=== PATIENT | male | born 1990 | race Caucasian/White ===

== ENCOUNTER → 2019-11-10 11:08 | Outpatient (CLI) | payer MEDICAID, SELFPAY ==
[2019-11-10 11:58] LABS: Absolute Lymphocyte Count 1.27 X10^3/uL (0.83-4.51); Absolute Neutrophil Count 2.6 X10^3/uL (2.0-7.7); Basophil# 0.06 X10^3/uL; Basophil% 1.3 % (0-1); Eosinophil# 0.18 X10^3/uL; Eosinophils% 3.9 % (0-5); Hematocrit 43.6 % (40-54); Hemoglobin 14.6 g/dL (13.0-16.5); Lymphocyte # 1.27 X10^3/ul (4.0); Lymphocyte % 27.5 % (19-41); Mean Corp Hgb Conc 33.5 g/dL (32-36); Mean Corpuscular Hgb 30.4 pg (27.0-32.0); Mean Corpuscular Volume 90.8 fL (80-94); Mean Platelet Vol. 9.4 fl (6.2-12.0); Monocyte# 0.43 X10^3/uL; Monocyte% 9.3 % (0-10); NRBC Flagged by Analyzer 0 % (0-5); Neutrophil # 2.62 X10^3/uL (2.7-7.7); Neutrophil % 56.9 % (47-70); Platelet Count 331 K/mm3 (150-450); RBC Distribution Width CV 12.7 % (11.6-14.6); RBC Distribution Width SD 42.2 fl (35.1-43.9); White Blood Count 4.6 K/mm3 (4.4-11.0)
[2019-11-10 12:00] LABS: CRP < 2.90 mg/L (0.0-3.0)
[2019-11-10 20:13] LABS: Erythrocyte Sedimentation Rate < 1 mm/hr (0-15)
== END ==
PROVIDERS: PCP Preventive Medicine Occupational Medicine; Referring Provider Registered Nurse; Visit Provider Registered Nurse
DX: R22.9 Localized swelling, mass and lump, unspecified (principal)
CPT/HCPCS: 36415; 85025; 85652; 86140

== ENCOUNTER 2021-02-25 19:00 | Emergency (ER) | payer MEDICAID, SELFPAY ==
[2021-02-25 19:02] VITALS: BP 134/95; PULSE 81; RESP 16; TEMP 36.3; O2SAT 98; BMI 27.6
--- NOTE | 2021-02-25 19:20 | RAD_ITS ---
STUDY: X-RAY - LEFT HAND REASON FOR EXAM: Male, 30 years old. INJURY TECHNIQUE: 3 view(s) of the hand. COMPARISON: None. FINDINGS: Normal radiocarpal articulation. Normal distal radioulnar joint. Normal visualized carpal bones. Normal carpal articulations Normal carpometacarpal articulation of the thumb. Normal second through fifth carpometacarpal joints. Normal metacarpi. Normal metacarpophalangeal joint of the thumb. Normal interphalangeal joint of the thumb. Normal proximal and distal phalanges of the thumb. Normal metacarpophalangeal joints of the second through fifth fingers. Normal proximal and distal interphalangeal joints of the second through fifth fingers. Normal phalanges of the second through fifth fingers. The soft tissue structures are unremarkable. RAD/Hand Min 3 Views IMPRESSION: Normal x-ray examination of the hand. Electronically Signed: Teto Escalona MD at 20:12 EDT , Service support ,
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
--- NOTE | 2021-02-25 21:24 | ED.RN ---
pt left prior to treatment
== END 2021-02-25 21:26 | disposition home or self-care (01) ==
LOC: ED 21:14
PROVIDERS: Emergency Provider Emergency Medicine; PCP Preventive Medicine Occupational Medicine
DX: S60.022A Contusion of left index finger without damage to nail, initial encounter (principal); W22.8XXA Striking against or struck by other objects, initial encounter; Y93.9 Activity, unspecified; Y92.9 Unspecified place or not applicable; Y99.9 Unspecified external cause status; F90.9 Attention-deficit hyperactivity disorder, unspecified type; F41.9 Anxiety disorder, unspecified; Z79.899 Other long term (current) drug therapy
CPT/HCPCS: 73130; 99282

== ENCOUNTER 2023-12-29 04:04 | Emergency (ER) | payer MEDICAID, SELFPAY ==
[2023-12-29] VITALS (7 sets, daily range): BP systolic 68–162; BP diastolic 36–105; PULSE 59–109; RESP 12–17; TEMP 36.2–37.1; O2SAT 98–99; BMI 26.7
--- NOTE | 2023-12-29 04:17 | CT_ITS ---
INDICATION: trauma EXAMINATION: CT NECK WITH CONTRAST - CT Soft Tissue Neck W/ Contrast Injection TECHNIQUE: Helically acquired images were obtained of the neck with sagittal and coronal reconstructed images. Individualized dose optimization techniques were used for this CT. IV contrast dosage and agent: Dose and agent. COMPARISON: None. FINDINGS: NASOPHARYNX: Unremarkable. SUPRAHYOID NECK: Unremarkable oropharynx, oral cavity, parapharyngeal space, and retropharyngeal space. INFRAHYOID NECK: Unremarkable larynx, hypopharynx, and supraglottis. THYROID: Unremarkable. SALIVARY GLANDS: Unremarkable. LYMPH NODES: No evidence of adenopathy. VASCULAR STRUCTURES: Unremarkable. VISUALIZED PORTIONS OF THE ORBITS, PARANASAL SINUSES, MASTOID AIR CELLS AND SKULL BASE: Unremarkable. BONES: No fracture or subluxation of the cervical spine. Nondisplaced nasal bone fractures. SOFT TISSUES: Unremarkable. THORACIC INLET: Visualized lung apices are unremarkable. CT/Soft Tissue Neck WITH Contrast IMPRESSION: No evidence of acute traumatic injury of the neck. Electronically Signed: Alex Bearden DO at 5:52 EDT ,
--- NOTE | 2023-12-29 04:17 | CT_ITS ---
INDICATION: trauma EXAMINATION: CT Maxillofacial W/O Contrast Injection TECHNIQUE: Helically acquired images were obtained of the face with sagittal and coronal reconstructed images. Individualized dose optimization techniques were used for this CT. IV Contrast dosage and agent: None. COMPARISON: None. FINDINGS: SOFT TISSUES: No focal soft tissue swelling. VISUALIZED PARANASAL SINUSES: Unremarkable. VISUALIZED MASTOID AIR CELLS: Clear. FACIAL BONES, MANDIBLE AND TMJs: Nondisplaced nasal bone fracture. No adjacent soft tissue swelling. ORBITAL CONTENTS: The globes, extraocular muscles and retrobulbar fat are unremarkable. CT/Sinus/Facial Bone IMPRESSION: Nondisplaced nasal bone fracture of unknown age. No other facial bone fracture. Electronically Signed: Alex Bearden DO at 5:44 EDT ,
--- NOTE | 2023-12-29 04:17 | CT_ITS ---
INDICATION: trauma EXAMINATION: CT BRAIN - CT Head or Brain W/O Contrast Injection TECHNIQUE: Multiple axial images were obtained of the head with sagittal and coronal reconstructed images. Individualized dose optimization techniques were used for this CT. IV contrast dosage and agent: None. COMPARISON: None. FINDINGS: BRAIN PARENCHYMA: No evidence of an acute infarct or intracranial hemorrhage. No evidence of a mass. CSF SPACES: The ventricles, sulci and subarachnoid cisterns are appropriate for age. CALVARIUM, SKULL BASE, PARANASAL SINUSES AND MASTOID AIR CELLS: Nondisplaced nasal bone fracture. Mastoid air cells are clear. Visualized paranasal sinuses are unremarkable. ORBITS: The globes, extraocular muscles, optic nerves and retrobulbar fat are unremarkable. CT/Brain/Head without Contrast IMPRESSION: Nondisplaced nasal bone fracture. No other fracture and no intracranial abnormality. Electronically Signed: Alex Bearden DO at 5:47 EDT ,
--- NOTE | 2023-12-29 04:18 | RAD_ITS ---
INDICATION: trauma EXAMINATION/TECHNIQUE: X-RAY - RIGHT XR Hand Min 3 Views COMPARISON: None. FINDINGS: SOFT TISSUES: Unremarkable. BONES/JOINTS: No fracture or dislocation. No significant degenerative changes. No erosive changes. RAD/Hand Min 3 Views IMPRESSION: No fracture or dislocation. Electronically Signed: Alex Bearden DO at 5:39 EDT ,
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
[2023-12-29] MEDS: 0.9% Normal Saline (500mL Bag) 500 ML 999 ML IV (05:11)
[2023-12-29] MEDS: Morphine 4 MG/ML Syringe IV (05:11)
[2023-12-29] MEDS: Ondansetron 4 MG/2 ML Vial IV (05:11)
[2023-12-29 06:35] LABS: Bedside Glucose 87 mg/dL (74-106)
== END 2023-12-29 06:22 | disposition home or self-care (01) ==
PROVIDERS: Emergency Provider Emergency Medicine; PCP Preventive Medicine Occupational Medicine; Visit Provider Emergency Medicine
DX: S02.2XXA Fracture of nasal bones, initial encounter for closed fracture (principal); S06.0X0A Concussion without loss of consciousness, initial encounter; S60.221A Contusion of right hand, initial encounter; Y04.8XXA Assault by other bodily force, initial encounter; R55 Syncope and collapse
CPT/HCPCS: 70450; 70486; 70491; 73130; 82962; 96361; 96374; 96375; 99285; Q9967; A4216; J2405

== ENCOUNTER → 2024-02-09 18:29 | Outpatient (REF) | payer SELFPAY ==
[2024-02-09 18:29] VITALS: TEMP 36.3; BMI 29.0
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
[2024-02-09] MEDS: Haloperidol Lactate 5 MG/ML Vial 10 MG IM (18:55)
[2024-02-09] MEDS: LORazepam 2 MG/ML Syringe IM (18:55)
[2024-02-09] MEDS: Haloperidol Lactate 5 MG/ML Vial IM (19:44)
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
[2024-02-09 20:43] LABS: Absolute Lymphocyte Count 1.37 X10^3/uL (0.83-4.51); Absolute Neutrophil Count 7.9 X10^3/uL (2.0-7.7); Basophil# 0.06 X10^3/uL; Basophil% 0.6 % (0-1); Eosinophil# 0.02 X10^3/uL; Eosinophils% 0.2 % (0-5); Hematocrit 47.5 % (40-54); Hemoglobin 16.3 g/dL (13.0-16.5); Lymphocyte # 1.37 X10^3/ul (0.83-4.51); Lymphocyte % 13.7 % (19-41); Mean Corp Hgb Conc 34.3 g/dL (32-36); Mean Corpuscular Hgb 30.7 pg (27.0-32.0); Mean Corpuscular Volume 89.5 fL (80-94); Mean Platelet Vol. 9.7 fl (6.2-12.0); Monocyte# 0.63 X10^3/uL; Monocyte% 6.3 % (0-10); NRBC Flagged by Analyzer 0 % (0-5); Neutrophil # 7.92 X10^3/uL (2.7-7.7); Neutrophil % 78.9 % (47-70); Platelet Count 331 K/mm3 (150-450); RBC Distribution Width CV 12.6 % (11.6-14.6); RBC Distribution Width SD 41.4 fl (35.1-43.9); Red Blood Count 5.31 M/mm3 (4.6-6.2)
[2024-02-09 20:52] VITALS: BP 119/68; PULSE 70; RESP 18; O2SAT 100
[2024-02-09 20:57] LABS: Anion Gap 11 (5-15); BUN 10 mg/dL (7-18); BUN/Creat Ratio 6.3 RATIO (10-20); Calcium,Total 9.9 mg/dL (8.5-10.1); Chloride 108 mmol/L (98-107); Creatinine, Serum 1.59 mg/dL (0.70-1.30); EST Glomerular Filtration Rate 54 mL/min (>60); Est Glom Filt Rate - Afr Amer 65 mL/min (>60); Estimated Creatinine Clearance 69.08 ml/min; Glucose 99 mg/dL (74-106); Potassium 3.8 mmol/L (3.5-5.1); Sodium Level 141 mmol/L (136-145)
[2024-02-09 21:28] LABS: Amphetamine Urine POSITIVE (<1000 ng/mL); Barbiturate Urine NEGATIVE (< 200 ng/mL); Benzodiazepine Urine POSITIVE (< 200 ng/mL); Cocaine Urine NEGATIVE (< 300 ng/mL); Ecstacy Urine NEGATIVE (< 500 ng/mL); Methadone Urine NEGATIVE (< 300 ng/mL); Opiates Urine NEGATIVE (< 300 ng/mL); PCP Urine NEGATIVE (< 25 ng/mL); THC Urine POSITIVE (< 50 ng/mL); Vista UDS pH Range 5
--- NOTE | 2024-02-09 21:32 | ED.RN ---
This nuse and CRUTCHING CONTRACTOR into collect urine sample from pt. Pt yelling and screaming. Explained that blood and urine needed collected to send to clear. Pt stating I just pulled that fuckin SI card so I wouldnt have to go to correction! This nurse explained that staff is here to help pt. Pt urinated in urinal without difficulty.
== END | disposition home or self-care (01) ==
LOC: ED 18:29
PROVIDERS: PCP Preventive Medicine Occupational Medicine; Visit Provider Emergency Medicine
DX: F32.0 Major depressive disorder, single episode, mild (principal); R45.851 Suicidal ideations; F10.920 Alcohol use, unspecified with intoxication, uncomplicated; Z65.3 Problems related to other legal circumstances
CPT/HCPCS: 80048; 80307; 82077; 85025

== ENCOUNTER 2024-02-18 23:22 | Inpatient (IN) | payer MEDICAID, SELFPAY ==
[2024-02-18 23:23] VITALS: BP 138/113; PULSE 120; RESP 18; TEMP 36.8; O2SAT 99; BMI 26.3
[2024-02-19] VITALS (8 sets, daily range): BP systolic 103–128; BP diastolic 57–93; PULSE 66–89; RESP 16–18; TEMP 35.8–37.1; O2SAT 97–100; BMI 25.0
--- NOTE | 2024-02-19 00:10 | EX.ED.SAOD ---
HPI History of Present Illness Chief Complaint: Substance Abuse Informant: patient Narrative Narrative: 33-year-old male presenting requesting admission for detox. He states mainly alcohol is the issue. It has been daily for several years averages about 24 cans of beer or equivalent per 24-hour period. He has been trying to curb in the last 2 weeks, today he only had 1 or 2 cans several hours ago to alonso off the shakes, but he feels like he is in withdrawal. He denies any suicidality. States he has a 4-year-old that he needs to straighten up his life 4. He states in the last 2 to 3 weeks he has been dabbling with snorting methamphetamine and fentanyl, partially because he accidentally lost his Adderall on the toilet, he did a Suboxone as someone gave him yesterday but it did not help him with a lot of his symptoms majorly. At this time he feels anxious, shaky, nauseated, he has been vomiting a little bit of stomach juice but no blood. Denies any melena or diarrhea. No confusion or seizures. [facility] Medical History Substance abuse Alcohol abuse GERD (gastroesophageal reflux disease) Smoker Anxiety ADHD Bicuspid cardiac valve Home Medications ?Medication ?Instructions ?Recorded ?Last Taken ?Type dextroamphetamine-amphetamine 15 1 tab PO BID 12/29/23 Unknown History mg tablet diazepam 2 mg tablet 2 mg PO Q6H PRN PRN anxiety 12/29/23 Unknown History Allergy/AdvReac Type Severity Reaction Status Date / Time acetaminophen (From Vicodin) Allergy Anaphylaxis Verified 02/18/24 23:23 carbamazepine (From Tegretol) Allergy Other Verified 02/18/24 23:23 divalproex sodium (From Allergy Other Verified 02/18/24 23:23 Depakote) hydrocodone (From Vicodin) Allergy Anaphylaxis Verified 02/18/24 23:23 Social History Smoking Status: Never smoker ROS ROS ED Constitutional Constitutional ED: Reports fatigue and malaise; Denies chills or fever(s) Eyes Eyes: Denies change in vision or diplopia ENT ENT ED: Denies rhinorrhea or sore throat Cardiovascular Cardiovascular: Denies chest pain or palpitations Respiratory/Chest Respiratory/Chest: Denies cough or dyspnea Gastrointestinal Gastrointestinal: Reports nausea and vomiting; Denies abdominal pain or diarrhea Genitourinary Genitourinary ED: Denies dysuria or hematuria Musculoskeletal Musculoskeletal: Denies back pain or neck pain Integumentary Denies abscess or rash Neurologic Neurologic: Denies headache(s), paresthesias or weakness Psychiatric Psychiatric: Reports anxiety; Denies suicidal thoughts EXAM Physical Exam Const Vital Signs: 02/18/24 23:23 Temperature 98.3 F Temperature Source Temporal Pulse Rate 120 H Respiratory Rate 18 Blood Pressure 138/113 H Blood Pressure Mean 121 Pulse Ox 99 Oxygen Delivery Method Room Air Positive well nourished and well developed General Appearance ED: well developed and NAD HEENT Reports moist mucous membranes normocephalic and atraumatic Eyes PERRL and EOMs intact bilaterally Neck full ROM and supple Resp normal respiratory effort and clear to auscultation bilaterally Cardio regular rate, regular rhythm and no murmurs GI non-tender and non-distended Auscultation: normoactive bowel sounds Palpation: soft Back/Spine no CVA tenderness General Back: other FROM Extremity normal to inspection General Extremety ED: Negative for edema, pulses abnormal or tenderness General Extremity: Negative for edema or pulses abnormal Neuro oriented x3, CN's II-XII intact bilaterally and no sensory deficits noted Sensorium / Orientation: awake and alert Motor Exam: strength 5/5 throughout Skin no rashes or lesions noted and no wounds MDM MDM MDM Narrative Medical decision making narrative: Patient was given IV fluids, Ativan, Zofran which helped his symptoms some. Workup in progress, his INR is within normal limits, cbc looks good, and EtOH only 66, consistent w/ his withdrawal sx. Discussed with hospitalist for admission. Lab Data Attestation: I reviewed the patient's lab results. Labs: Laboratory Results - last 24 hr 02/18/24 23:55 WBC 8.0 RBC 4.70 Hgb 14.3 Hct 40.3 MCV 85.7 MCH 30.4 MCHC 35.5 RDW Std Deviation 38.0 RDW Coeff of Magy 12.1 Plt Count 405 MPV 9.8 Immature Gran % (Auto) 1.500 H Neut % (Auto) 49.3 Lymph % (Auto) 34.8 Phillips % (Auto) 11.3 H Eos % (Auto) 1.8 Baso % (Auto) 1.3 H Absolute Neuts (auto) 4.0 Absolute Lymphs (auto) 2.78 Nucleated RBC % 0 PT 15.1 H INR 1.2 Sodium 139 Potassium 3.2 L Chloride 104 Carbon Dioxide 23.0 Anion Gap 12 BUN 7 Creatinine 1.24 Estim Creat Clear Calc 79.96 Est GFR (MDRD) Af Amer 87 Est GFR (MDRD) Non-Af 72 BUN/Creatinine Ratio 5.6 L Glucose 111 H Calcium 8.9 Total Bilirubin 2.10 H AST 29 ALT 43 Alkaline Phosphatase 91 Total Protein 7.7 Albumin 4.3 Globulin 3.4 Albumin/Globulin Ratio 1.3 Ethyl Alcohol 66.0 Management Discussion w/another healthcare provider: Hospitalist Discharge Plan Dx/Rx/DC Orders Clinical Impression: Alcohol withdrawal, Alcohol dependence, Polysubstance abuse Disposition Disposition: Acute Care Hospital [facility]
[2024-02-19] MEDS: Ondansetron 4 MG/2 ML Vial IV (00:18)
[2024-02-19] MEDS: LORazepam 2 MG/ML Syringe 1 MG IV (00:18)
[2024-02-19] MEDS: 0.9% Normal Saline (500mL Bag) 500 ML 999 ML IV (00:25)
[2024-02-19 00:41] LABS: International Normalized Ratio 1.2; Prothrombin Time (Protime)PT. 15.1 SECONDS (11.7-14.9)
[2024-02-19 00:50] LABS: Absolute Lymphocyte Count 2.78 X10^3/uL (0.83-4.51); Basophil% 1.3 % (0-1); Eosinophil# 0.14 X10^3/uL; Eosinophils% 1.8 % (0-5); Hematocrit 40.3 % (40-54); Hemoglobin 14.3 g/dL (13.0-16.5); Lymphocyte # 2.78 X10^3/ul (0.83-4.51); Lymphocyte % 34.8 % (19-41); Mean Corp Hgb Conc 35.5 g/dL (32-36); Mean Corpuscular Hgb 30.4 pg (27.0-32.0); Mean Corpuscular Volume 85.7 fL (80-94); Mean Platelet Vol. 9.8 fl (6.2-12.0); Monocyte% 11.3 % (0-10); NRBC Flagged by Analyzer 0 % (0-5); Neutrophil # 3.96 X10^3/uL (2.7-7.7); Neutrophil % 49.3 % (47-70); Platelet Count 405 K/mm3 (150-450); RBC Distribution Width CV 12.1 % (11.6-14.6)
--- NOTE | 2024-02-19 00:51 | HP.PCM.HOS_ITS ---
HPI - General General Date of Admission: 02/19/24 Date of Service: 02/19/24 Chief Complaint: Alcohol detox HPI Narrative ADRIANNA VALENCIA, is a 33 M who presented to [facility] ED on 02/19/2024 for alcohol detoxification. Saw patient at bedside in the ED. Patient was sitting up comfortably in bed, no acute distress. Per ED physician, patient did have signs of alcohol withdrawal on arrival to the ED so he was given doses of IV Ativan and IV Zofran with improvement in symptoms along with some sedation. When I saw the patient, he was answering my questions with short appropriate sponsors but did appear somewhat somnolent. He currently denied any acute withdrawal symptoms. Further information was obtained per ED physician. Patient has been a daily drinker for the past several years. Typically drinks about 24 cans of beer per day. He has been trying to cut back significantly over the past few weeks with only 1 to 2 cans of beer per day but has had significant withdrawal symptoms with this. States that he has a 4-year-old child and wants to straighten up his life for his child. He has been dabbling with snorting methamphetamine and fentanyl in the last 2 to 3 weeks, mainly because he lost all of his Adderall. He apparently was given a dose of Suboxone by a friend yesterday but this did not seem to help his withdrawal symptoms much. His primary symptoms on arrival to the ED were feeling anxious, shaky, nauseated and with some recent episodes of vomiting. Otherwise denied any other acute concerns. Vitals in ED notable for sinus tachycardia to around 120 and mild hypertension that improved with IV Ativan, otherwise unremarkable. Labs notable for mild hypokalemia, mildly elevated total bilirubin, otherwise unremarkable. Alcohol level was 66. No imaging was obtained. Will be admitted for further management. [facility] Medical History (Updated 02/19/24 @ 03:[address] Julien Jasso, DO) Substance abuse Alcohol abuse GERD (gastroesophageal reflux disease) Smoker Anxiety ADHD Bicuspid cardiac valve Home Medications ?Medication ?Instructions ?Recorded ?Last Taken ?Type dextroamphetamine-amphetamine 15 1 tab PO BID 12/29/23 Unknown History mg tablet diazepam 2 mg tablet 2 mg PO Q6H PRN PRN anxiety 12/29/23 Unknown History Allergy/AdvReac Type Severity Reaction Status Date / Time acetaminophen (From Vicodin) Allergy Anaphylaxis Verified 02/18/24 23:23 carbamazepine (From Tegretol) Allergy Other Verified 02/18/24 23:23 divalproex sodium (From Allergy Other Verified 02/18/24 23:23 Depakote) hydrocodone (From Vicodin) Allergy Anaphylaxis Verified 02/18/24 23:23 Social History Smoking Status: Current every day smoker tobacco type: e-cigarettes ROS Constitutional Constitutional: Denies chills, fatigue, fever(s) or weakness Eyes Eyes: Denies change in vision Cardiovascular Cardiovascular: Denies chest pain Respiratory/Chest Respiratory/Chest: Denies shortness of breath at rest Gastrointestinal Gastrointestinal: Reports nausea and vomiting; Denies abdominal pain, constipation or diarrhea Musculoskeletal Musculoskeletal: Reports myalgias; Denies arthralgias Neurologic Neurologic: Denies dizziness, focal weakness or headache(s) Psychiatric Psychiatric: Reports anxiety Vital Signs Vital Signs Vital Signs: 02/18/24 23:23 Temperature 98.3 F Temperature Source Temporal Pulse Rate 120 H Respiratory Rate 18 Blood Pressure 138/113 H Blood Pressure Mean 121 Pulse Ox 99 Oxygen Delivery Method Room Air Weight Weight: 76.158 kg Body Mass Index (BMI) 26.3 Physical Exam Const alert, oriented x3 and no apparent distress Constitutional Narrative: Younger male, somewhat somnolent appearing, otherwise sitting up comfortably in bed, answering questions with short appropriate responses, in no acute distress. General Appearance: cooperative and comfortable HEENT normocephalic, head/scalp atraumatic, hearing grossly normal bilaterally, nasal mucous membranes and turbinates normal and moist oral mucous membranes Eyes PERRL, EOMs intact bilaterally and conjunctivae normal Neck full ROM Chest inspection of chest normal Resp normal respiratory effort, normal air movement, no use of accessory muscles and clear to auscultation bilaterally Cardio regular rate, regular rhythm, no murmurs and peripheral pulses 2+ throughout GI normal to inspection, nondistended, normoactive bowel sounds, soft to palpation, non-tender and non-distended Back/Spine normal ROM Extremity normal to inspection, full ROM and no pedal edema Skin no rashes or lesions noted Neuro moves all extremities and no focal motor deficits Speech: speech normal Psych mental status grossly normal Results Lab / Micro Data 02/18/24 23:55 02/18/24 23:55 Labs: Laboratory Results - last 24 hr 02/18/24 23:55: PT 15.1 H, INR 1.2 Assessment & Plan Assessment/Plan (1) Alcohol abuse: (2) Polysubstance abuse: (3) Opiate abuse, episodic: (4) Desire for detoxification: (5) Hypokalemia: PLAN: Plan Patient is a 33-year-old male who presented [facility] ED on 02/19/2024 for alcohol and opiate detoxification. 1. Alcohol abuse with desire for detoxification ? Admit under inpatient status to [facility]. Case management consulted. Will treat with phenobarbital taper and other as needed medications per alcohol withdrawal order set. 2. Opiate abuse with desire for detoxification, polysubstance abuse ? Patient reported dabbling with snorting methamphetamine and fentanyl recently but does not report consistent long-term use. Patient notably was brought to the ED by police escort under arrest on 02/08 for domestic violence and was very agitated at that time. UDS 02/08 positive for amphetamines, benzodiazepines and cannabinoids. CINA scoring and as needed medications ordered per opiate withdrawal order set but will hold on treating with Subutex taper for now. 3. Mild hypokalemia ? Potassium 3.2 on admit. Magnesium ordered. Replete as needed. 4. Elevated total bilirubin level ? Total bilirubin level 2.1 on admit, LFTs otherwise unremarkable. Follow-up a.m. bilirubin. Presume due to alcohol use, no further workup needed at this time. 5. Anxiety/depression/history of SI/ADHD ? Will hold home Adderall and diazepam for now, treating with medications for withdrawal as noted above. DVT prophylaxis: Lovenox CODE STATUS: Full code, verified Expected disposition: Home, 2 to 3 days Total clinical time spent by myself addressing the patient's medical issues, reviewing all the data, and collaborating with patient's care team: 55 minutes. Charges/Coding Visit Charges Inpatient E&M: 06170 Init Hosp L2
[2024-02-19 01:02] LABS: ALB/GLOB Ratio 1.3 RATIO (0.9-2.4); AST(SGOT) 29 U/L (15-37); Alanine Aminotransfer ALT/SGPT 43 U/L (16-61); Albumin, Serum 4.3 g/dL (3.2-5.0); Alkaline Phosphatase 91 U/L (45-117); Anion Gap 12 (5-15); BUN 7 mg/dL (7-18); BUN/Creat Ratio 5.6 RATIO (10-20); Calcium,Total 8.9 mg/dL (8.5-10.1); Chloride 104 mmol/L (98-107); Creatinine, Serum 1.24 mg/dL (0.70-1.30); EST Glomerular Filtration Rate 72 mL/min (>60); Est Glom Filt Rate - Afr Amer 87 mL/min (>60); Estimated Creatinine Clearance 79.96 ml/min; Globulin 3.4 g/dL (2.2-4.2); Glucose 111 mg/dL (74-106); Potassium 3.2 mmol/L (3.5-5.1); Protein, Total 7.7 g/dL (6.4-8.2); Sodium Level 139 mmol/L (136-145)
[2024-02-19] MEDS: Gabapentin 300 MG Capsule PO (02:51)
[2024-02-19] MEDS: Dicyclomine 10 MG Capsule 20 MG PO (02:51)
[2024-02-19] MEDS: Phenobarbital 32.4 MG Tablet 64.8 MG PO ×6 (02:51→22:03)
[2024-02-19] MEDS: Potassium Chloride Oral Tablet 20 MEQ 40 MEQ PO (04:51)
[2024-02-19] MEDS: hydrOXYzine PAM 25 MG Capsule 50 MG PO (06:11)
[2024-02-19 07:10] LABS: ALB/GLOB Ratio 1.1 RATIO (0.9-2.4); AST(SGOT) 24 U/L (15-37); Alanine Aminotransfer ALT/SGPT 38 U/L (16-61); Albumin, Serum 3.6 g/dL (3.2-5.0); Alkaline Phosphatase 82 U/L (45-117); Anion Gap 5 (5-15); BUN 8 mg/dL (7-18); BUN/Creat Ratio 7.3 RATIO (10-20); Calcium,Total 8.2 mg/dL (8.5-10.1); Chloride 106 mmol/L (98-107); EST Glomerular Filtration Rate 82 mL/min (>60); Est Glom Filt Rate - Afr Amer 100 mL/min (>60); Estimated Creatinine Clearance 93.27 ml/min; Globulin 3.3 g/dL (2.2-4.2); Glucose 98 mg/dL (74-106); Potassium 3.9 mmol/L (3.5-5.1); Protein, Total 6.9 g/dL (6.4-8.2); Sodium Level 139 mmol/L (136-145)
[2024-02-19 07:25] LABS: Magnesium 2.6 mg/dL (1.6-2.6)
[2024-02-19] MEDS: Thiamine Hydrochloride 100 MG Tablet PO (08:01)
[2024-02-19] MEDS: Folic Acid 1 MG Tablet PO (08:01)
--- NOTE | 2024-02-19 09:09 | PCM.PN.HOSP ---
Reason for Visit Reason for Visit: Diagnoses Hypokalemia (02/19/24) Alcohol abuse, uncomplicated (02/19/24) Opioid abuse, uncomplicated (02/19/24) Other psychoactive substance abuse, uncomplicated (02/19/24) Subjective Subjective Patient is a 34-year-old gentleman with history of polysubstance dependence admitted with withdrawal from both alcohol and opioid Objective Data Objective Data Vital Signs: Vital Signs Temp Pulse Resp BP Pulse Ox O2 Del Method 96.4 F L 88 16 121/80 H 100 Room Air 02/19/24 02:30 02/19/24 02:30 02/19/24 02:30 02/19/24 02:30 02/19/24 02:30 02/19/24 03:00 Oxygen Delivery Method Room Air Weight: 74.525 kg Body Mass Index (BMI) 25.0 Intake & Output: Intake and Output for Last 24 Hours 02/17/24 02/18/24 02/19/24 23:59 23:59 23:59 Intake Total 500 / 500 Output Total 0 / 0 Balance 500 / 500 Lab / Micro Data 02/18/24 23:55 02/19/24 05:51 Labs: Laboratory Results - last 24 hr 02/18/24 23:55: WBC 8.0, RBC 4.70, Hgb 14.3, Hct 40.3, MCV 85.7, MCH 30.4, MCHC 35.5, RDW Std Deviation 38.0, RDW Coeff of Magy 12.1, Plt Count 405, MPV 9.8, Immature Gran % (Auto) 1.500 H, Neut % (Auto) 49.3, Lymph % (Auto) 34.8, [place] % (Auto) 11.3 H, Eos % (Auto) 1.8, Baso % (Auto) 1.3 H, Absolute Neuts (auto) 4.0, Absolute Lymphs (auto) 2.78, Nucleated RBC % 0, PT 15.1 H, INR 1.2, Sodium 139, Potassium 3.2 L, Chloride 104, Carbon Dioxide 23.0, Anion Gap 12, BUN 7, Creatinine 1.24, Estim Creat Clear Calc 79.96, Est GFR (MDRD) Af Amer 87, Est GFR (MDRD) Non-Af 72, BUN/Creatinine Ratio 5.6 L, Glucose 111 H, Calcium 8.9, Total Bilirubin 2.10 H, AST 29, ALT 43, Alkaline Phosphatase 91, Total Protein 7.7, Albumin 4.3, Globulin 3.4, Albumin/Globulin Ratio 1.3, Ethyl Alcohol 66.0 02/19/24 05:51: Sodium 139, Potassium 3.9, Chloride 106, Carbon Dioxide 28.0, Anion Gap 5, BUN 8, Creatinine 1.10, Estim Creat Clear Calc 93.27, Est GFR (MDRD) Af Amer 100, Est GFR (MDRD) Non-Af 82, BUN/Creatinine Ratio 7.3 L, Glucose 98, Calcium 8.2 L, Magnesium 2.6, Total Bilirubin 1.50 H, AST 24, ALT 38, Alkaline Phosphatase 82, Total Protein 6.9, Albumin 3.6, Globulin 3.3, Albumin/Globulin Ratio 1.1 Physical Exam Narrative GENERAL: cooperative HEENT: Atraumatic; normocephalic EYES; Anicteric, Normal Conjunctiva NECK; supple, normal thyroid, RESPIRATORY: Diminished to auscultation CARDIOVASCULAR: Regular S1 S2, GI: soft, normoactive bowel sounds, : No Renal angle tenderness; EXTREMITIES: No edema, no clubbing, MUSCULOSKELETAL: no muscle wasting NEURO: Awake; no lateralizing signs. SKIN: No Rash PSYCH; Flat affect Assessment & Plan Assessment/Plan (1) Alcohol abuse: (2) Polysubstance abuse: (3) Opiate abuse, episodic: (4) Desire for detoxification: (5) Hypokalemia: PLAN: Plan Patient is a 34-year-old gentleman with history of polysubstance dependence admitted with withdrawal from both alcohol and opioid 1. Acute alcohol withdrawal - Patient has been admitted for treatment with phenobarb taper in addition to adjuvant medications including gabapentin, Bentyl, hydroxyzine and clonidine as needed for alcohol withdrawal symptoms. Patient was also placed on thiamine and folic acidConsultation placed to [facility] counseling services 2. 1. Acute opioid withdrawal - Patient has been admitted to regular nursing floor, managed buprenorphine taper along with other adjunctive medications for medical stabilization 3. Hypokalemia ? Corrected per protocol 4. Abnormal LFTs ? Secondary to chronic alcohol dependence will monitor 5. Depression with anxiety ? Remains stable 6. ADHD ? Patient is on Adderall which is currently being held 7. DVT prophylaxis low risk to encourage ambulation Time spent in the patient's overall evaluation,decision-making process, review of diagnostic data, adjustment of management, discussion with other providers, nursing nursing and ancillary staff involved in patient's care documentation, 38 Minutes Charges/Coding Visit Charges Inpatient E&M: 88150 Subs Hosp L2
--- NOTE | 2024-02-19 12:26 | CASEMGMT ---
agriculture extension specialist Colton said she will meet with patient tomorrow Sun02-20-24. Aracelis Persaud SHUTTLE VENEERING SUPERVISOR SALVATIONIST
--- NOTE | 2024-02-19 12:53 | CASEMGMT ---
Social Work As per admitting RN, pt does not have LW/POA, declined additional information. JOSTIN Rubi
[2024-02-19 18:41] LABS: Amphetamine Urine VISTA POSITIVE (<1000 ng/mL); Barbiturate Urine VISTA POSITIVE (< 200 ng/mL); Benzodiazepine Urine VISTA POSITIVE (< 200 ng/mL); Cocaine Urine VISTA NEGATIVE (< 300 ng/mL); Ecstacy Urine VISTA POSITIVE (< 500 ng/mL); Methadone Urine VISTA NEGATIVE (< 300 ng/mL); PCP Urine VISTA NEGATIVE (< 25 ng/mL); THC Urine VISTA POSITIVE (< 50 ng/mL); Vista UDS pH Range 5
[2024-02-20] MEDS: Phenobarbital 32.4 MG Tablet 64.8 MG PO ×6 (02:03→22:17)
[2024-02-20 03:36] VITALS: BP 94/62; PULSE 67; RESP 18; TEMP 35.9; O2SAT 100
[2024-02-20 07:46] VITALS: O2SAT 97
--- NOTE | 2024-02-20 08:03 | PCM.PN.HOSP ---
Reason for Visit Reason for Visit: Diagnoses Hypokalemia (02/19/24) Alcohol abuse, uncomplicated (02/19/24) Opioid abuse, uncomplicated (02/19/24) Other psychoactive substance abuse, uncomplicated (02/19/24) Subjective Subjective Patient is a 33-year-old gentleman on admission for both alcohol and opioid withdrawal. Seen this a.m. complains of feeling tired Objective Data Objective Data Vital Signs: Vital Signs Temp Pulse Resp BP Pulse Ox O2 Del Method 96.6 F L 67 18 94/62 100 Room Air 02/20/24 03:36 02/20/24 03:36 02/20/24 03:36 02/20/24 03:36 02/20/24 03:36 02/20/24 03:36 Oxygen Delivery Method Room Air Weight: 74.525 kg Body Mass Index (BMI) 25.0 Intake & Output: Intake and Output for Last 24 Hours 02/18/24 02/19/24 02/20/24 23:59 23:59 23:59 Intake Total 1100 / 1100 Output Total 200 / 200 Balance 900 / 900 Lab / Micro Data 02/18/24 23:55 02/19/24 05:51 Labs: Laboratory Results - last 24 hr 02/19/24 18:25: Urine Opiates Screen NEGATIVE, Urine Methadone Screen NEGATIVE, Ur Barbiturates Screen POSITIVE H, Ur Phencyclidine Scrn NEGATIVE, Ur Amphetamines Screen POSITIVE H, MDMA (Ecstasy) Screen POSITIVE H, U Benzodiazepines Scrn POSITIVE H, Urine Cocaine Screen NEGATIVE, U Cannabinoids Screen POSITIVE H, Ur Drug Screen Comment Physical Exam Narrative GENERAL: cooperative HEENT: Atraumatic; normocephalic EYES; Anicteric, Normal Conjunctiva NECK; supple, normal thyroid, RESPIRATORY: Diminished to auscultation CARDIOVASCULAR: Regular S1 S2, GI: soft, normoactive bowel sounds, : No Renal angle tenderness; EXTREMITIES: No edema, no clubbing, MUSCULOSKELETAL: no muscle wasting NEURO: Awake; no lateralizing signs. SKIN: No Rash PSYCH; Flat affect Assessment & Plan Assessment/Plan (1) Alcohol abuse: (2) Polysubstance abuse: (3) Opiate abuse, episodic: (4) Desire for detoxification: (5) Hypokalemia: PLAN: Plan Patient is a 34-year-old gentleman with history of polysubstance dependence admitted with withdrawal from both alcohol and opioid 1. Acute alcohol withdrawal - Patient has been admitted for treatment with phenobarb taper in addition to adjuvant medications including gabapentin, Bentyl, hydroxyzine and clonidine as needed for alcohol withdrawal symptoms. Patient was also placed on thiamine and folic acidConsultation placed to [facility] counseling services 2. Acute opioid withdrawal - Patient has been admitted to regular nursing floor, managed buprenorphine taper along with other adjunctive medications for medical stabilization 3. Hypokalemia ? Corrected per protocol 4. Abnormal LFTs ? Secondary to chronic alcohol dependence will monitor 5. Polysubstance dependence ? Patient tox screen was positive for barbiturates, amphetamines, MDMA ,benzos and cannabis. Counseled on cessation 6. ADHD ? Patient is on Adderall which is currently being held 7. Depression with anxiety ? Remains stable 8. DVT prophylaxis low risk to encourage ambulation Time spent in the patient's overall evaluation,decision-making process, review of diagnostic data, adjustment of management, discussion with other providers, nursing nursing and ancillary staff involved in patient's care documentation, 36 Minutes Charges/Coding Visit Charges Inpatient E&M: 74971 Subs Hosp L2
[2024-02-20 10:00] VITALS: BP 128/72; PULSE 97; RESP 16; TEMP 36.7; O2SAT 99
[2024-02-20] MEDS: Folic Acid 1 MG Tablet PO (10:08)
[2024-02-20] MEDS: Thiamine Hydrochloride 100 MG Tablet PO (10:08)
--- NOTE | 2024-02-20 12:43 | ADDICTION ---
This database report writer met with PT to conduct ASAM, MSE, DUDIT assessments and to plan for d/c. All assessments completed. PT declined d/c planning noting that he will follow up if he feels that he needs it. This database report writer encouraged PT to schedule an appointment but PT declined again.
[2024-02-20 14:00] VITALS: BP 123/88; PULSE 77; RESP 16; TEMP 36.9; O2SAT 99
[2024-02-20 18:00] VITALS: BP 119/78; PULSE 90; RESP 16; TEMP 36.7; O2SAT 99
[2024-02-20 22:00] VITALS: BP 118/69; PULSE 70; RESP 18; TEMP 35.9; O2SAT 100
[2024-02-21] MEDS: Phenobarbital 32.4 MG Tablet 64.8 MG PO ×2 (02:04→06:03)
[2024-02-21 03:24] VITALS: BP 107/65; PULSE 83; RESP 18; TEMP 35.8; O2SAT 100
--- NOTE | 2024-02-21 07:57 | PCM.DC.SUM ---
Providers Date of Admission: 02/19/24 Date of Discharge: 02/21/24 Primary Care Physician: Dr. Casa Epps, Reason For Visit: ALCOHOL DETOX Diagnosis Discharge Diagnosis (1) Alcohol abuse: Status: Acute Code(s): F10.10 - Alcohol abuse, uncomplicated (2) Polysubstance abuse: Status: Acute Code(s): F19.10 - Other psychoactive substance abuse, uncomplicated (3) Opiate abuse, episodic: Status: Acute Code(s): F11.10 - Opioid abuse, uncomplicated (4) Desire for detoxification: Status: Acute (5) Hypokalemia: Status: Acute Code(s): E87.6 - Hypokalemia Plan Patient is a 34-year-old gentleman with history of polysubstance dependence admitted with withdrawal from both alcohol and opioid 1. Acute alcohol withdrawal - Patient has been admitted for treatment with phenobarb taper in addition to adjuvant medications including gabapentin, Bentyl, hydroxyzine and clonidine as needed for alcohol withdrawal symptoms. Patient was also placed on thiamine and folic acidConsultation placed to [facility] counseling services ? 02/21/2024; patient apparently declined any further treatment as outpatient. Decision was therefore made for patient to be discharged home he will follow-up with his primary care physician for subsequent care 2. Acute opioid withdrawal - Patient has been admitted to regular nursing floor, managed buprenorphine taper along with other adjunctive medications for medical stabilization 3. Hypokalemia ? Corrected per protocol 4. Abnormal LFTs ? Secondary to chronic alcohol dependence will monitor 5. Polysubstance dependence ? Patient tox screen was positive for barbiturates, amphetamines, MDMA ,benzos and cannabis. Counseled on cessation 6. ADHD ? Patient is on Adderall which is currently being held 7. Depression with anxiety ? Remains stable 8. DVT prophylaxis low risk to encourage ambulation Time spent in the patient's overall evaluation,decision-making process, review of diagnostic data, adjustment of management, discussion with other providers, nursing nursing and ancillary staff involved in patient's care documentation, 36 Minutes Medications at Discharge Home Medications dextroamphetamine-amphetamine 15 mg tablet 1 tab PO BID 12/29/23 Physical Exam Narrative GENERAL: cooperative HEENT: Atraumatic; normocephalic EYES; Anicteric, Normal Conjunctiva NECK; supple, normal thyroid, RESPIRATORY: Diminished to auscultation CARDIOVASCULAR: Regular S1 S2, GI: soft, normoactive bowel sounds, : No Renal angle tenderness; EXTREMITIES: No edema, no clubbing, MUSCULOSKELETAL: no muscle wasting NEURO: Awake; no lateralizing signs. SKIN: No Rash PSYCH; Flat affect Weight / BMI Weight Weight: 74.525 kg Body Mass Index (BMI) 25.0 ABG / Lab / Microbiology Data 02/18/24 23:55 02/19/24 05:51 D/C Instructions Discharge Diet: No restrictions Discharge Activity: Return to Normal Activity Call your doctor if you observe: Fever of 101 or Higher, Shortness of breath, Fainting spells and Chest pain Meaningful Use Info Meaningful Use Meaningful Use Diagnoses (Choose all that apply): None applicable Ischemic Stroke Statin Dosing Therapy Reference: STATIN DOSE THERAPY REFERENCE: * Patients > 75 years receive moderate or high dose statin therapy. * Patients 75 years or YOUNGER should receive HIGH intensity statin dose unless contraindicated. You will be required to document reason for non-treatment if statin daily dose does not meet guidelines. HIGH DOSE STATIN THERAPY DAILY Atorvastatin > than or = to 40 mg Rosuvastatin > than or = to 20 mg Amlodipine + Atorvastatin > than or = to 2.5/40 mg Ezetimibe + Simvastatin 10/80 mg Simvastatin 80mg Discharge Plan Admission Admit Date/Time: 02/19/24 01:16 Attending Provider: Chase Jackson Primary Care Provider: Casa Epps Consulting Providers: Julien Jasso Discharge Orders/Prescriptions Prescriptions: Continued dextroamphetamine-amphetamine 15 mg tablet 1 tab PO BID Discontinued diazepam 2 mg tablet 2 mg PO Q6H PRN PRN (Reason: anxiety) Referrals / Follow Up: Casa Epps DO [Primary Care Provider] - Disposition Disposition (needs filled in before D/C Order can be placed): Home, Self Care Charges/Coding Visit Charges Inpatient E&M: 95657 Disch Hosp >30min
[2024-02-21 08:18] VITALS: O2SAT 96
--- NOTE | 2024-02-21 10:00 | PHA.DC.MR.R ---
[facility] Recon[facility] Pharmacy Service has performed discharge medication reconciliation for this patient. No new medications at time of discharge review. Medications reviewed are from previously reported home medications. The patient's discharge medication list was reviewed for discrepancies and discrepancies were resolved. Medications at Discharge Home Medications dextroamphetamine-amphetamine 15 mg tablet 1 tab PO BID 12/29/23
[2024-02-21 10:18] VITALS: BP 124/96; PULSE 76; RESP 15; TEMP 36.9; O2SAT 100
[2024-02-21] MEDS: Thiamine Hydrochloride 100 MG Tablet PO (10:23)
[2024-02-21] MEDS: Folic Acid 1 MG Tablet PO (10:23)
--- NOTE | 2024-02-21 11:09 | CASEMGMT ---
RN indicated patient was asking if he is going somewhere for rehab. Per Rosi, resource specialist patient said he did not want anything and he has court Sunday. However, patient is now saying he does not remember talking to Rosi yesterday and wants to go somewhere for rehab. SW notified Rosi. Rosi attempted to see patient again, but he was in the shower. Rosi told RN and SW that patient needs to go to his court hearing tomorrow and afterwards call her and she will get him in somewhere. Rosi left her card with patient. Aracelis Persaud [employer]
== END 2024-02-21 11:30 | disposition home or self-care (01) | DRG 773 ==
LOC: ED 02-19 01:20 → PCU 02-19 01:34
PROVIDERS: Admitting Provider Hospitalist; Emergency Provider Emergency Medicine; PCP Preventive Medicine Occupational Medicine; Visit Provider Internal Medicine
DX: F10.239 Alcohol dependence with withdrawal, unspecified (principal); F11.23 Opioid dependence with withdrawal; F13.20 Sedative, hypnotic or anxiolytic dependence, uncomplicated; F16.21 Hallucinogen dependence, in remission; F12.20 Cannabis dependence, uncomplicated; F15.20 Other stimulant dependence, uncomplicated; F32.A Depression, unspecified; E87.6 Hypokalemia; F17.290 Nicotine dependence, other tobacco product, uncomplicated; F41.9 Anxiety disorder, unspecified; Y90.3 Blood alcohol level of 60-79 mg/100 ml; F90.9 Attention-deficit hyperactivity disorder, unspecified type; Z65.3 Problems related to other legal circumstances; Z79.899 Other long term (current) drug therapy; Z91.51 Personal history of suicidal behavior
CPT/HCPCS: 36415; 80053; 80307; 82077; 83735; 85025; 85610; 99284; J7030; J2405